=== PATIENT | female | born 1965 | race Caucasian/White ===

== ENCOUNTER 2016-04-21 16:06 | Emergency (ER) | payer OTHER, MEDICARE ==
[~2016-04-21] VITALS: Ht 167.6 cm; Wt 68.0 kg
[~2016-04-21 16:06] MED LIST: AMPHETAMINE SAL30 MG PO; BACTRIM DS 8001 TAB PO; DEXTROAMP-AMPHE30 MG PO; DOLOBID PO; ESCITALOPRAM10 MG PO; FLEXERIL10 MG PO; FLUOXETINE HCL20 M2 PO; IBUPROFEN600 M1 PO; KEFLEX500 M1 PO; LEVOTHROID0.075 MG PO; LEVOTHYROXINE125 MCG PO; MEDROL DOSEPAK1 PAC PO; OXYCODONE HYDRO30 MG PO; OXYCONTIN80 MG PO; PERCOCET 325 MG1 TA2 PO; PROAIR HFA0.09 MG/Ac INH; SYNTHROID0.05 MG PO; TRAMADOL HCL50 M1 PO; ULTRAM50 M1 PO; ZITHROMAX Z-PA250 MG PO; ZOFRAN ODT4 MG SL
[2016-04-21 16:10] VITALS: BP 158/98
[2016-04-21] MEDS ORDERED: FLUOXETINE HCL40 M1 PO (17:22)
--- NOTE | 2016-04-21 17:29 | ED NECK/BACK PAIN COMPLAINT ---
History of Present Illness General Chief Complaint: Low Back Pain/Injury Stated Complaint: TAILBONE PAIN S/P FALL Source: patient Exam Limitations: no limitations Vital Signs & Intake/Output Vital Signs & Intake/Output Vital Signs Date Time Temp Pulse Resp B/P Pulse O2 O2 Flow FiO2 Ox Delivery Rate 04/21 1610 97.6 88 18 158/98 97 Room Air Allergies Coded Allergies: NO KNOWN ALLERGIES (11/27/15) Reconcile Medications Dextroamphetamine/Amphetamine (Dextroamp-Amphetamin 30 MG Tab) 30 MG TABLET 1 TAB PO BID ADD (Reported) Fluoxetine HCl 40 MG CAPSULE 1 CAP PO DAILY MENTAL HEALTH (Reported) Levothyroxine Sodium 125 MCG TABLET 1 TAB PO DAILY THYROID (Reported) Oxycodone HCl/Acetaminophen (Percocet 5-325 MG Tablet) 5 MG-325 MG TABLET 1 TAB PO TID PRN PAIN Tramadol HCl 50 MG TABLET 1 TAB PO PRN PAIN (Reported) Triage Note: STATES THAT SHE TRIPPED THIS AM AND FELL BACK ONTO HER TAIL BONE, TAKING TRAMADOL WITH NO RELIEF Triage Nurses Notes Reviewed? yes HPI: 50-year-old female here with complaints of severe sharp stabbing coccyx pain and tenderness after she slipped out of bed and fell onto her tailbone onto a hardwood floor. This occurred earlier today. She has pain with palpation of the area pain with sitting and she has a difficult time sitting because of the pain. She has also mild pain to the left hip region. She took a tramadol without relief. No previous injuries to the area. No neurologic symptoms. No other injuries. (WINTER BRADY) Past History Travel History Traveled to [place] past 21 day No Medical History Any Pertinent Medical History? 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 No (WINTER BRADY) Review of Systems Review of Systems Constitutional: Reports: see HPI. Eyes: Reports: no symptoms. Ears, Nose, Throat, Mouth: Reports: no symptoms. Respiratory: Reports: no symptoms. Cardiovascular: Reports: no symptoms. Gastrointestinal/Abdominal: Reports: no symptoms. Musculoskeletal: Reports: see HPI. Skin: Reports: no symptoms. Neurological/Psychological: Reports: no symptoms. All Other Systems: Reviewed and Negative (WINTER BRADY) Physical Exam Physical Exam General Appearance: well developed/nourished Neck: normal inspection, supple, full range of motion, normal alignment Comments: Well-developed well-nourished no apparent distress. HEENT: Atraumatic, extraocular motion intact Neck: Supple, no lymphadenopathy Back: Tenderness to the lower coccyx region, no swelling, no ecchymosis, no crepitus, No deformity or signs of trauma. There is no rashes present. Minimal tenderness to left lateral hip region, Range of motion is limited secondary to pain Straight leg raise is negative bilaterally. Bilateral lower extremities are neurovascularly intact with sensation and motor grossly intact. Gait is antalgic. Respiratory: No respiratory distress Abdomen: Soft nontender nondistended Extremities: No edema, full range of motion Neuro: Alert and oriented x3 Psych: Mood affect normal, normal memory normal judgment. Skin: Warm and dry, no rash on exposed skin (WINTER BRADY) Progress Differential Diagnosis: AAA, aortic dissection, C spine injury, carotid dissection, cauda equina syn, herniated disc, myofascial strain, pyelo/UTI, sciatica, spinal cord inj, thoracic outlet syn, T/L spine injury, ureterolithiasis Plan of Care: Orders Procedure Date/time Status XRY-SACRUM AND COCCYX 04/21 1726 Active Diagnostic Imaging: Viewed by Me: Radiology Read. Discussed w/RAD: Radiology Read. Radiology Impression: PATIENT: DOMINIQUE SANCHEZ PRESENT AGE: 50 PATIENT ACCOUNT NO: [id number] : 67 LOCATION: [facility] ORDERING PHYSICIAN: WINTER PAN SERVICE DATE: 04/21/16 EXAM TYPE: RAD - XRY-SACRUM AND COCCYX EXAMINATION: XR SACRUM AND COCCYX CLINICAL INFORMATION: Status post fall. Evaluate for coccygeal fracture. COMPARISON: None. TECHNIQUE: AP and lateral views of the sacrum and coccyx, three views in total. FINDINGS: No grossly displaced fractures of the sacrum or coccyx. The bilateral sacroiliac joints are intact. The sacral arcuate lines are intact. There is no appreciable diastases of the bilateral sacroiliac joints or pubic symphysis. IMPRESSION: No grossly displaced sacrococcygeal fractures. DICTATED BY: GALILEO FALLON MD DATE /TIME DICTATED:04/21/161830 ELECTRIC ENGINE MECHANIC:LINDEN DATE/TIME TRANSCRIBED: 04/21/16 (WINTER BRADY) Departure Departure Disposition: HOME OR SELF CARE Condition: Stable Clinical Impression Primary Impression: Contusion of coccyx Qualifiers: Encounter type: initial encounter Qualified Code: S30.0XXA - Contusion of lower back and pelvis, initial encounter Referrals: ARIANE HENLEY MD (PCP/Family) GUSTAVO VAUGHAN,MITZI Estrada Additional Instructions: Follow-up with orthopedist in one to 2 weeks if no better. Rest, ice, sit on a donut pillow which you may obtain [id number] at the pharmacy Take Percocet as needed for pain Departure Forms: Customer Survey General Discharge Information Prescriptions: Current Visit Scripts Oxycodone HCl/Acetaminophen (Percocet 5-325 MG Tablet) 1 TAB PO TID PRN PAIN #15 TAB (WINTER BRADY) PA/TIRE ASSEMBLER Co-Sign Statement Statement: ED Attending supervision documentation- [] I saw and evaluated the patient. I have also reviewed all the pertinent lab results and diagnostic results. I agree with the findings and the plan of care as documented in the PA's/TIRE ASSEMBLER's documentation. x I have reviewed the ED Record and agree with the PA's/TIRE ASSEMBLER's documentation. [] Additions or exceptions (if any) to the PAs/TIRE ASSEMBLER's note and plan are summarized below: [] (MORIAH VAUGHAN,WARD)
[2016-04-21] MEDS ORDERED: PERCOCET 5-3251 EACH PO ×2 (18:39→18:48)
--- NOTE | 2016-04-21 19:03 | RADIOLOGY REPORT ---
EXAMINATION: XR SACRUM AND COCCYX CLINICAL INFORMATION: Status post fall. Evaluate for coccygeal fracture. COMPARISON: None. TECHNIQUE: AP and lateral views of the sacrum and coccyx, three views in total. FINDINGS: No grossly displaced fractures of the sacrum or coccyx. The bilateral sacroiliac joints are intact. The sacral arcuate lines are intact. There is no appreciable diastases of the bilateral sacroiliac joints or pubic symphysis. IMPRESSION: No grossly displaced sacrococcygeal fractures.
== END 2016-04-21 18:40 ==
LOC: ERH 16:06
DX: S30.0XXA Contusion of lower back and pelvis, initial encounter (principal); W06.XXXA Fall from bed, initial encounter
CPT/HCPCS: 72220

== ENCOUNTER → 2016-05-26 | Day surgery (SDC) | payer OTHER, MEDICARE ==
[~2016-05-26] VITALS: Ht 167.6 cm; Wt 68.0 kg
[~2016-05-26] MED LIST changes: +AMOXICILLIN500 M2 PO; +BACTRIM DS TAB1 EACH PO; +FLUOXETINE HCL40 M1 PO; +KETOROLAC TROME10 M1 PO; +PERCOCET 5-3251 EACH PO
--- NOTE | 2016-05-26 13:04 | Operative Report ---
Operative/Inv Procedure Report Surgery Date: 05/26/16 Name of Procedure: CYSTOSCOPY: RIGHT RETROGRADE PYELOGRAM; RIGHT URETER ESWL. FLUROROSCOPY Pre-Operative Diagnosis: HEMATURIA: RIGHT URETER STONE Post-Operative Diagnosis: SAME Estimated Blood Loss: scant Surgeon/Primer Inspector: JESS TAVERA MD Anesthesia: laryngeal mask airway Complications: NONE Operative/Procedure Note Note: The patient was taken to the operating room and placed on the ESWL table in supine position. Time out was performed, with the patient awake, to confirm identity, procedure, laterality, and other pertinent corinne-operative information. After adequate anesthesia, the patient was positioned so that the right flank was placed over the ESWL table cut-out, and overlying the dome of the shockwave generator. C-arm fluroscopy, as well as renal US was used to locate the stone, and evaluate the right kidney. The stone was faintly visible on fluroloscopy at the right distal ureter. Renal US confirmed no hydronephrosis, with no additional stone seen in the right kidney. The patient was then frog legged, draped and prepped in usual surgical fashion. A 22 Algerian cystoscope sheath with a 30 angle lens was inserted into the urethra without difficulty. Upon entering the bladder the bladder was noted to be free of tumor free of stone, both orifices in orthotopic position. Clear reflux of urine was noted from the left side, and darker urine that appears to have some blood component within it was noted to compress the right ureter orifice. The right orifice was then intubated with a tiger-tail open-ended stent. Retrograde pyelogram was performed confirming a 5 mm filling defect in the distal ureter consistent with stone. Using the C-Arm fluoroscopy in an A-P, and Oblique view, the position of the ureter stone was optimized at the center of the crosshairs. The stents, and the cystoscope was removed without difficulty . At this point, E.S.W.L. was initiated at low power levels x 200 shocks, focused on the area of the filling defect in the right ureter. After noting the patient's tolerance to the shockwaves, the shockwave power level was quickly maximized. At the end of the procedure, the composition of the stone had changed significantly indicating the pulverization of the ureter stone. A total of 3000 shockwaves were delivered to the stone in order to achieve adequate lithotrypsy. The patient tolerated the procedures well, was awakened, and taken to recovery in satisfactory condition via stretcher. The pt. will be dischared to home with pain meds, diet orders, and intructions to catch fragments with straining the urine. The patient is to have follow-up renal ultrasound and KUB within 1-2 weeks and f/u in the office after discharge. Findings: 5MM RIGHT URETER STONE Discharge Disposition: PACU CC: LIANG VAUGHAN,JESS
== END ==
LOC: STS 03:12
DX: N20.1 Calculus of ureter (principal); R31.9 Hematuria, unspecified; B19.20 Unspecified viral hepatitis C without hepatic coma; B15.9 Hepatitis A without hepatic coma; E03.9 Hypothyroidism, unspecified; F17.200 Nicotine dependence, unspecified, uncomplicated
CPT/HCPCS: 81025; J2250

== ENCOUNTER 2016-09-27 01:01 | Emergency (ER) | payer OTHER, MEDICARE ==
[~2016-09-27] VITALS: Ht 167.6 cm; Wt 63.5 kg
[~2016-09-27 01:01] MED LIST changes: -AMOXICILLIN500 M2 PO; -BACTRIM DS TAB1 EACH PO; -KETOROLAC TROME10 M1 PO
[2016-09-27 02:51] LABS: ABSOLUTE BASOPHIL COUNT 0 /CUMM (0.0-0.2); ABSOLUTE EOSINOPHIL COUNT 0.2 /CUMM (0.0-0.7); ABSOLUTE GRANULOCYTE CT 5.4 /CUMM (1.4-6.5); ABSOLUTE LYMPH COUNT 2.4 /CUMM (1.2-3.4); ABSOLUTE MONOCYTE COUNT 1.1 /CUMM (0.10-0.60); BASOPHIL % 0.4 % (0.0-2.0); EOSINOPHIL % 2.4 % (0-5); GRANULOCYTE % 59.3 % (42.2-75.2); HEMATOCRIT 34.5 % (37-47); MEAN CORPUSCULAR HGB 32.2 PG (27.0-31.0); MEAN CORPUSCULAR HGB CONC 33.9 G/DL (33.0-37.0); MEAN CORPUSCULAR VOLUME 95.1 FL (81.0-99.0); MEAN PLATELET VOLUME 8.5 FL (7.4-10.4); PLATELET COUNT 272 /CUMM (130-400); RBC DISTRIBUTION WIDTH 13.6 % (11.5-14.5); RED BLOOD CELL CT 3.63 /CUMM (4.20-5.40); WHITE BLOOD CELL COUNT 9.2 /CUMM (4.8-10.8)
--- NOTE | 2016-09-27 03:02 | ED UPPER/LOWER EXTREMITY COMPL ---
History of Present Illness General Chief Complaint: Lower Extremity Problems Stated Complaint: RIGHT LEG SWELLING Source: patient Exam Limitations: no limitations Vital Signs & Intake/Output Vital Signs & Intake/Output Vital Signs Date Time Temp Pulse Resp B/P B/P Pulse O2 O2 Flow FiO2 Mean Ox Delivery Rate 09/27 0210 96.8 92 18 109/66 97 Room Air Allergies Coded Allergies: NO KNOWN ALLERGIES (11/27/15) Reconcile Medications Amoxicillin 500 MG CAPSULE 1 CAP PO TID INFECTION Dextroamphetamine/Amphetamine (Dextroamp-Amphetamin 30 MG Tab) 30 MG TABLET 1 TAB PO BID ADD (Reported) Fluoxetine HCl 40 MG CAPSULE 1 CAP PO DAILY MENTAL HEALTH (Reported) Ketorolac Tromethamine 10 MG TABLET 1 TAB PO Q6P PRN PAIN PATIENT RECEIVED iv tORADOL IN THE EMERGENCY DEPARTMENT Levothyroxine Sodium 125 MCG TABLET 1 TAB PO DAILY THYROID (Reported) Oxycodone HCl/Acetaminophen (Percocet 5-325 MG Tablet) 5 MG-325 MG TABLET 1 TAB PO TID PRN PAIN Sulfamethoxazole/Trimethoprim (Bactrim Ds Tablet) 800 MG-160 MG TABLET 1 TAB PO BID INFECTION Tramadol HCl 50 MG TABLET 1 TAB PO PRN PAIN (Reported) Triage Note: PT TO ED WITH COMPLAINTS OF R LEG PAIN AND INCREASED SWELLING THAT STARTED ON WEDNESDAY. PT STATES "I THINK I HAVE A CLOT." PT ABLE TO BEAR WEIGHT ON LEG. R LEG APPEARS RED AND WARM TO TOUCH. Triage Nurses Notes Reviewed? yes HPI: Patient presents for evaluation of right leg swelling redness and pain that began gradually about 2 days ago. The symptoms have been constant and are described as moderate to severe. Nothing seems to make her feel better. She states in fact that things got worse today. She has noticed that the area of redness and swelling is feeling "hard". She denies any associated trauma chest pain dyspnea fever cold symptoms prolonged travel surgeries or cancer. She is a cigarette smoker. Past History Travel History Traveled to [place] past 21 day No Medical History Any Pertinent Medical History? 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 No Review of Systems Review of Systems Constitutional: Reports: no symptoms. EENTM: Reports: no symptoms. Respiratory: Reports: no symptoms. Cardiovascular: Reports: no symptoms. Gastrointestinal/Abdominal: Reports: no symptoms. Genitourinary: Reports: no symptoms. Musculoskeletal: Reports: no symptoms. Skin: Reports: see HPI. Neurological/Psychological: Reports: no symptoms. Hematologic/Endocrine: Reports: no symptoms. Immunological: Reports: no symptoms. All Other Systems: Reviewed and Negative Physical Exam Physical Exam General Appearance: SEE BELOW Comments: Gen.: Well-nourished, well-developed, no acute respiratory distress. Head: Normocephalic, atraumatic. Eyes: Normal inspection bilaterally Ears: Normal inspection bilaterally Nose: Normal inspection, nasal cannula in place Throat/mouth : Moist mucosa Neck: Supple, full range of motion, no goiter Heart: Regular rate and rhythm Lungs: Quiet respirations Back: Normal range of motion Extremities: Right leg: Swelling mild induration erythema and warmth of the medial aspect of the right leg. Neurologic: Cranial nerves grossly intact, speech is clear Skin: warm and dry Psychiatric: Calm, cooperative, no apparent delusions or hallucinations Diagram Legs Front/Back 1) CELLULITIS Progress Differential Diagnosis: cellulitis Plan of Care: Orders Procedure Date/time Status D-DIMER 09/27 0307 Complete COMPREHENSIVE METABOLIC PANEL 09/27 0214 Complete CBC WITHOUT DIFFERENTIAL 09/27 0214 Complete Laboratory Tests 09/27/16 0327: D-Dimer High Sensitivty < 200 09/27/16 0242: Anion Gap 9, Estimated GFR > 60, BUN/Creatinine Ratio 20.0, Glucose 98, Calcium 9.0, Total Bilirubin 0.4, AST 33, ALT 48, Alkaline Phosphatase 73, Total Protein 6.9, Albumin 3.9, Globulin 3.0, Albumin/Globulin Ratio 1.3, CBC w Diff NO MAN DIFF REQ, RBC 3.63 L, MCV 95.1, MCH 32.2 H, RDW 13.6, MPV 8.5, Gran % 59.3, Lymphocytes % 26.0, Monocytes % 11.9 H, Eosinophils % 2.4, Basophils % 0.4, Absolute Granulocytes 5.4, Absolute Lymphocytes 2.4, Absolute Monocytes 1.1 H, Absolute Eosinophils 0.2, Absolute Basophils 0, PUBS MCHC 33.9 Comments: 09/27/2016 4:05:35 AM patient's d-dimer is normal so I doubt DVT. Patient's clinical presentation is consistent with cellulitis. She has no fever or elevation in white blood cell count and has no history of diabetes or other immune compromise. I feel she can be treated as an outpatient. Departure Departure Disposition: HOME OR SELF CARE Condition: Stable Clinical Impression Primary Impression: Cellulitis Qualifiers: Site of cellulitis: extremity Site of cellulitis of extremity: lower extremity Laterality: right Qualified Code: L03.115 - Cellulitis of right lower limb Referrals: ARIANE HENLEY MD (PCP/Family) Additional Instructions: Amoxicillin and Bactrim as prescribed. Ketorolac as needed for pain. Follow-up with your primary care physician in 48 hours for reevaluation. Return if any concerns or sudden worsening. Thank you for choosing the [facility] for your care. It was a pleasure to serve you today. Mathew Nolen M.D. [facility] Departure Forms: Customer Survey General Discharge Information Prescriptions: Current Visit Scripts Amoxicillin 1 CAP PO TID #30 CAP Sulfamethoxazole/Trimethoprim (Bactrim Ds Tablet) 1 TAB PO BID #20 TAB Ketorolac Tromethamine 1 TAB PO Q6P PRN PAIN #16 TAB PATIENT RECEIVED iv tORADOL IN THE EMERGENCY DEPARTMENT
[2016-09-27] MEDS ORDERED: BACTRIM DS TAB1 EACH PO (04:26)
[2016-09-27] MEDS ORDERED: KETOROLAC TROME10 M1 PO (04:26)
[2016-09-27] MEDS ORDERED: AMOXICILLIN500 M2 PO (04:26)
[2016-09-27 04:57] VITALS: BP 110/67
== END 2016-09-27 04:58 ==
LOC: ERH 01:01
PROVIDERS: Emergency Medicine
DX: L03.115 Cellulitis of right lower limb (principal)
CPT/HCPCS: 96374; 96375; J1885

== ENCOUNTER 2017-09-22 19:11 | Emergency (ER) | payer OTHER, MEDICARE ==
[~2017-09-22 19:11] MED LIST changes: +AMOXICILLIN500 M2 PO; +BACTRIM DS TAB1 EACH PO; +CYCLOBENZAPRINE10 M1 PO; +KETOROLAC TROME10 M1 PO
--- NOTE | 2017-09-22 19:55 | ED SKIN/ALLERGY COMPLAINT ---
History of Present Illness General Chief Complaint: Lower Extremity Problems Stated Complaint: R LEG SWELLING AND REDNESS Source: patient, family, old records Exam Limitations: no limitations Vital Signs & Intake/Output Vital Signs & Intake/Output Vital Signs Date Time Temp Pulse Resp B/P B/P Pulse O2 O2 Flow FiO2 Mean Ox Delivery Rate 09/223 98.6 86 20 117/58 96 Room Air 09/22 1932 97.8 84 20 133/78 98 Allergies Coded Allergies: NO KNOWN ALLERGIES (11/27/15) Reconcile Medications Amoxicillin 500 MG CAPSULE 1 CAP PO TID INFECTION Azithromycin (Zithromax) 250 MG TABLET 1 TAB PO DAILY cellulitis Cyclobenzaprine HCl 10 MG TABLET 1 TAB PO QPM PRN MUSCLE RELAXOR Dextroamphetamine/Amphetamine (Dextroamp-Amphetamin 30 MG Tab) 30 MG TABLET 1 TAB PO BID ADD (Reported) Diphenhydramine HCl (Benadryl Allergy) 25 MG TABLET 1-2 TAB PO Q6P PRN itchy rash Fluoxetine HCl 40 MG CAPSULE 1 CAP PO DAILY MENTAL HEALTH (Reported) Hydrocodone/Acetaminophen ([place] 5-325 Tablet) 5 MG-325 MG TABLET 1-2 TAB PO Q4-6 PRN PRN severe pain Ibuprofen 600 MG TABLET 1 TAB PO Q6P PRN pain with food Ketorolac Tromethamine 10 MG TABLET 1 TAB PO Q6P PRN PAIN PATIENT RECEIVED iv tORADOL IN THE EMERGENCY DEPARTMENT Levothyroxine Sodium 125 MCG TABLET 1 TAB PO DAILY THYROID (Reported) Oxycodone HCl/Acetaminophen (Percocet 5-325 MG Tablet) 5 MG-325 MG TABLET 1 TAB PO TID PRN PAIN Sulfamethoxazole/Trimethoprim (Bactrim Ds Tablet) 800 MG-160 MG TABLET 1 TAB PO BID INFECTION Tramadol HCl 50 MG TABLET 1 TAB PO PRN PAIN (Reported) Triage Note: PER PT SWELLING TO RLE AFTER ? BIT BY SOMETHING 1 WEEK AGO Triage Nurses Notes Reviewed? yes Onset: Last week Duration: day(s):, constant, continues in ED, getting worse Timing: recent history Severity: moderate Location: extremities Possible Factors: insect bite, insect sting No Modifying Factors: none Associated Symptoms: change in skin texture, rash LMP (ages 10-50): post menopausal : No Patient currently breastfeeds: No HPI: One week prior to admission while patient was outside at a [employer] sale she felt many insect bites to her lower legs especially on the right. Since this time she complains of redness and pain to the bite sites. She denies fever chills nausea vomiting diarrhea abdominal pain chest pain shortness breath headache dysuria bleeding. Past History Travel History Traveled to [place] past 21 day No Medical History Any Pertinent Medical History? 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 No Review of Systems Review of Systems Constitutional: Reports: no symptoms. EENTM: Reports: no symptoms. Respiratory: Reports: no symptoms. Cardiovascular: Reports: no symptoms. GI: Reports: no symptoms. Genitourinary: Reports: no symptoms. Musculoskeletal: Reports: no symptoms. Skin: Reports: see HPI, rash. Neurological/Psychological: Reports: no symptoms. Hematologic/Endocrine: Reports: no symptoms. Immunologic/Allergic: Reports: no symptoms. All Other Systems: Reviewed and Negative Physical Exam Physical Exam General Appearance: well developed/nourished, alert, awake, anxious, mild distress Head: atraumatic, normal appearance Eyes: Bilateral: normal appearance, PERRL, EOMI. Ears, Nose, Throat: normal pharynx, normal ENT inspection, hearing grossly normal Neck: normal inspection, supple, full range of motion, no midline tenderness Respiratory: normal breath sounds, chest non-tender, no respiratory distress, quiet respiration, lungs clear Cardiovascular: regular rate/rhythm, normal peripheral pulses, norml femoral pulses equa Peripheral Pulses: 4+ carotid (R), 4+ carotid (L) Gastrointestinal: normal bowel sounds, soft, non-tender, no organomegaly Back: normal inspection, normal range of motion, no vertebral tenderness Extremities: normal inspection, normal capillary refill, normal range of motion, no edema Neurologic/Psych: no motor/sensory deficits, awake, alert, oriented x 3, normal gait, normal mood/affect, chip mixer II-XII nml as tested Reflexes: 2+: bicep (R), bicep (L). Skin: intact, rash Skin Problem Location: lower extremities, right distal medial lower leg with cellulitic patch, warm, tender to touch left pretibial area with patcy cellulitis / folliculitis Skin Problem Character: intact, erythema, patchy, rash, swelling, tenderness, warm Lymphatic: no anterior cervical marisa Progress Differential Diagnosis: abscess/cellulitis, allergic reaction, contact dermatitis Plan of Care: Current Medications Sig/Richard Start time Last Medication Dose Stop Time Status Admin Acetaminophen 1,000 MG ONCE ONE 09/22 2099 [facility] ([facility]) 09/22 2100 Departure Departure Time of Disposition: 2003 Disposition: HOME OR SELF CARE Condition: Stable Clinical Impression Primary Impression: Cellulitis Secondary Impressions: Folliculitis Referrals: Peg Martinez MD (PCP/Family) Departure Forms: Customer Survey General Discharge Information Prescriptions: Current Visit Scripts Azithromycin (Zithromax) 1 TAB PO DAILY #4 TAB Ibuprofen 1 TAB PO Q6P PRN pain #50 TAB with food Diphenhydramine HCl (Benadryl Allergy) 1-2 TAB PO Q6P PRN itchy rash #30 TAB Ref 1 Hydrocodone/Acetaminophen ([place] 5-325 Tablet) 1-2 TAB PO Q4-6 PRN PRN severe pain #15 TAB
[2017-09-22] MEDS ORDERED: IBUPROFEN600 M1 PO (20:05)
[2017-09-22] MEDS ORDERED: ZITHROMAX250 M2 PO (20:05)
[2017-09-22] MEDS ORDERED: BENADRYL ALLERG25 M2 PO (20:05)
[2017-09-22] MEDS ORDERED: NORCO 5-325 TA1 EACH PO (21:02)
[2017-09-22 21:43] VITALS: BP 117/58
== END 2017-09-22 21:45 ==
LOC: ERH 19:11
DX: L03.115 Cellulitis of right lower limb (principal); L03.116 Cellulitis of left lower limb; L73.9 Follicular disorder, unspecified
CPT/HCPCS: 96365; 96375; J0131; J0456; J1200; J1885; J7040